=== PATIENT | male | born 1985 | race Caucasian/White ===

== ENCOUNTER → 2019-03-23 12:44 | Outpatient (CLI) | payer BC, SELFPAY | PROVIDERS: Referring Provider Ophthalmology; Visit Provider Ophthalmology | DX: H16.011 Central corneal ulcer, right eye (principal) | CPT/HCPCS: 87070; 87075; 87077; 87186; 87205 ==

== ENCOUNTER 2023-06-27 10:12 | Emergency (ER) | payer BC, SELFPAY ==
[2023-06-27 10:13] VITALS: BP 156/81; PULSE 94; RESP 16; TEMP 36.4; O2SAT 98; BMI 26.4
[2023-06-27] MEDS: Ondansetron 4 MG/2 ML Vial IV (11:02)
[2023-06-27] MEDS: Ketorolac 15 MG/ML Vial IV (11:03)
[2023-06-27] MEDS: Morphine 4 MG/ML Syringe IV (11:04)
--- NOTE | 2023-06-27 11:06 | ED.VIS.BACK ---
HPI History of Present Illness Chief Complaint: Back Detail of Chief Complaint: Central low back pain since Tuesday Informant: patient and spouse/S.O. Onset/Context/Timing Onset: Days Context: Sudden Onset Injury: lifting, twisting, bending and - (Prior to playing with son when pain started he was doing yard work.) Timing: Continuous and Waxes and wanes Quality: Aching Location: Lumbar (Central and bilateral) Current Severity: Mild Maximum Severity: Severe Worsened by: improves with Movement, Ambulation, Bending and Lifting; worse with Night time pain Relieved by: Nothing (Patient has applied ice, taken prednisone which was leftover from prior prescription.) Associated Symptoms Associated Symptoms: - (He denies foot drop. He denies saddle paresthesia or anesthesia when he wipes.); Negative for Numbness, Tingling, Radiation to Right Leg, Radiation to Left Leg, Fever, Abdominal Pain, Dysuria, Unable to Ambulate, Unable to Transfer, Urinary Retention, Urinary Incontinence, Constipation or Fecal Incontinence Narrative Narrative: Patient is a 38-year-old male with prior history of back problems. He presents with back pain that is bilateral central lower region over the lumbar area. He denies bowel bladder dysfunction. No saddle paresthesia anesthesia. Denies radicular pain. He denies foot drop. He denies numbness or tingling in his perineal region. He denies recent dental procedure or any type or's procedure. Denies fever, chills night sweats. Denies weight loss. He was taken ibuprofen without improvement. He has taken prednisone 20 mg without improvement. The prednisone was from prior prescription. Prior similar symptoms: Yes Recent Illness/Hospitalization: No [facility] Medical History Acute pharyngitis, unspecified Acute sinusitis, unspecified Contact with or exposure to other viral diseases Home Medications hydrochlorothiazide 12.5 mg tablet 12.5 mg PO DAILY 02/04/22 [History Last Taken Unknown] prednisone 5 mg tablet 5 mg PO DAILY 02/04/22 [History Last Taken Unknown] amoxicillin 875 mg-potassium clavulanate 125 mg tablet 1 tab PO BID #20 tabs 01/24/23 [Rx Last Taken Unknown] diazepam 2 mg tablet (Valium) 2 mg PO TID 4 days #10 tabs 06/27/23 [Rx Last Taken Unknown] hydrocodone-acetaminophen 5-325mg 5mg-325mg 1 tab PO Q6H PRN PRN Pain 3 days #10 TABLETS 06/27/23 [Rx Last Taken Unknown] Allergy/AdvReac Type Severity Reaction Status Date / Time No Known Allergies Allergy Verified 06/27/23 10:13 Family History Other Hypertension Social History (Updated 06/27/23 @ 11:[address] David Gtz MD) household members: spouse and children Smoking Status: Never smoker alcohol intake: current alcohol intake frequency: holidays/special occasions only substance use type: does not use ROS ROS ED Constitutional Constitutional ED: Denies chills, fever(s), subjective or sweats Eyes Eyes: Denies blurry vision, change in vision or diplopia ENT ENT ED: Denies ear pain, rhinorrhea or sore throat Cardiovascular Cardiovascular: Denies chest pain, orthopnea, palpitations or racing heartbeat Respiratory/Chest Respiratory/Chest: Denies dyspnea, dyspnea on exertion or orthopnea Gastrointestinal Gastrointestinal: Denies abdominal pain, constipation, diarrhea, nausea or vomiting Genitourinary Genitourinary ED: Denies dysuria, hematuria or urinary frequency Musculoskeletal Musculoskeletal: Reports back pain; Denies arthralgias, myalgias or neck pain Integumentary Denies rash Neurologic Neurologic: Denies paresthesias EXAM Physical Exam Const Vital Signs: 06/27/23 10:13 Temperature 97.6 F L Temperature Source Temporal Pulse Rate 94 Respiratory Rate 16 Blood Pressure 156/81 H Blood Pressure Mean 106 Pulse Ox 98 Oxygen Delivery Method Room Air Positive well nourished and well developed Constitutional Narrative: Patient appears uncomfortable when he adjusts himself and attempts to sit up. General Appearance ED: well developed; Negative for pallor HEENT Reports moist mucous membranes HEENT Narrative: Head is atraumatic and normocephalic. Ears normal. Nares patent. Eyes PERRL and EOMs intact bilaterally General Eye ED: Negative for pale conjunctiva or scleral icterus Neck no lymphadenopathy, supple and no JVD Resp normal respiratory effort and clear to auscultation bilaterally Cardio regular rate, regular rhythm, S1 normal heart sound, S2 normal heart sound and no murmurs GI normal to inspection, nondistended, normoactive bowel sounds, soft to palpation, non-tender, non-distended and no masses Palpation: Negative for hepatomegaly, splenomegaly or pulsatile mass Extremity normal to inspection and no clubbing, cyanosis or edema General Extremety ED: Negative for edema or tenderness General Extremity: Negative for edema Neuro oriented x3 and no sensory deficits noted Neuro Narrative: EHL is intact. 5 of 5 strength with plantar and dorsiflexion of the foot. Sensation L3-S1 dermatome are normal. Sensorium / Orientation: alert Deep Tendon Reflexes: Rt Patellar (L4): 3+, Lt Patellar (L4): 3+, Rt Ankle (S1): 3+ and Lt Ankle (S1): 3+ Deep Tendon Reflexes Back: Rt Patellar (L4): 3+, Lt Patellar (L4): 3+, Rt Ankle (S1): 3+ and Lt Ankle (S1): 3+ Plantar Reflex: Downgoing: bilateral (There is no clonus or noted.) Psych mental status grossly normal Skin no rashes or lesions noted and no wounds General Skin Exam: Negative for jaundice or pallor MDM MDM MDM Narrative Medical decision making narrative: History and physical is consistent with musculoskeletal low back pain. Since patient is in significant discomfort will reassess after he is medicated with regards to straight leg test, observing ambulation. Treatment and Re-Evaluation Narrative: At 1114 entered the room for reevaluation. Patient and informed that he had received his pain medicine only 5 or 10 minutes ago. Will reassess in 15 minutes. Patient was reassessed at 1135. Straight leg test is negative right and left. Able to ambulate with minimal assistance. Patient feels comfortable going home. He was discharged home with prescription for [place], Valium and told to take ibuprofen or Aleve. Discharge Plan Triage Chief Complaint: Back ED Provider: David Gtz Dx/Rx/DC Orders Clinical Impression: Difficulty in walking, Acute lumbar myofascial strain Instructions: ED Back Sprain/Strain Prescriptions: New hydrocodone-acetaminophen [hydrocodone-acetaminophen] 5-325 mg tablet 1 tab PO Q6H PRN PRN (Reason: Pain) 3 Days Qty: 10 0RF diazepam [Valium] 2 mg tablet 2 mg PO TID 4 Days Qty: 10 0RF No Action hydrochlorothiazide 12.5 mg tablet 12.5 mg PO DAILY prednisone 5 mg tablet 5 mg PO DAILY amoxicillin-pot clavulanate 875-125 mg tablet 1 tab PO BID Qty: 20 0RF Primary Care Provider: Yulissa De La Rosa Referrals: Yulissa De La Rosa MD [Primary Care Provider] - 1 Week if not improving NOT,DEFINED [Non-Staff] - Activity Restrictions/Additional Instructions: 1. Take 4 ibuprofen tablets every 8 hours or 2 Aleve tablets every 12 hours for the next 3 to 5 days 2. Apply ice 20 to 30 minutes per application 6-10 times a day 3. If there is no improvement in a week follow-up with your doctor 4. If you are unable to urinate, have loss of bowel control, dragging of foot return immediately Disposition Disposition: Home, Self Care
[2023-06-27 11:56] VITALS: BP 132/80; PULSE 74; RESP 16; TEMP 36.6; O2SAT 99
== END 2023-06-27 11:58 | disposition home or self-care (01) ==
PROVIDERS: Emergency Provider Emergency Medicine; PCP Internal Medicine; Visit Provider Emergency Medicine
DX: S39.012A Strain of muscle, fascia and tendon of lower back, initial encounter (principal); R26.2 Difficulty in walking, not elsewhere classified; X50.9XXA Other and unspecified overexertion or strenuous movements or postures, initial encounter
CPT/HCPCS: 96374; 96375; 99284; A4216; J2405

== ENCOUNTER 2023-08-29 12:30 | Outpatient (RCR) | payer BC, SELFPAY ==
--- NOTE | 2023-07-06 15:02 | HP.PTEVAL ---
Patient's Visit Information Visit Information Visit Information: PARISH CASAREZ is a 38 year old M referred to Physical Therapy by JOSEPHINE Scott with a diagnosis of ACUTE R SIDE LBP WITHOUT SCIATICA. 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 ERUM LE ROM, STRETCHING AND STRENGTHENING. HEP INSTRUCTION. 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 PATIENT DENIES ERUM NUMBNESS AND TINGLING. NO L LE SX'S. Present since: BACK PROBLEMS STARTED IN HIGH SCHOOL BUT THIS FLARE UP STARTED Tuesday06/18/23 - ABOUT 3 WKS AGO Pain Scale: WORST 8/10, LEAST 0/10 Currently: 05/14 Is it getting better, worse or staying the same: GETTING BETTER Commenced as a result of: HIT HEAD ON CAR DOOR AND BEND FORWARD REALLY QUICK - FELT BACK START TO TIGHTEN UP. ABOUT A WEEK LATER PICKING UP 11 MONTH OLD SON AND FELT SAME THING BUT MORE SEVERE. THAT DAY WENT ON IT KEPT GETTING WORSE AND BY 5 PM BACK WAS SO TIGHT COULDN'T GET OUT OF BED. TRYING TO GET OUT OF CAR LATER BACK LOCKED UP. Worse: SITTING, RISING FROM SITTING, WALKING - LIFTING R LEG, PUTTING HEAD DOWN LIKE TO GET IN CAR, MOVING IN GENERAL - SQUATTING DOWN AND STANDING UP. Better: LAYING DOWN ON BACK Disturbed sleep: YES - WHEN TRYING TO ROLL Previous history/Previous treatment: EPISODIC LBP SINCE HIGH SCHOOL - 2-3 TIMES A YEAR. CAN BE SET OFF BY SIMPLE THINGS LIKE BENDING TO PUT CONTACTS IN. USUALLY ABLE TO SELF MANAGE WITH ICE AND STRETCHING. SOMETIMES HAVE NEEDED PREDNISONE. CHIROPRACTIC IN HIGH SCHOOL. NO PT. NO BACK SURGERY OR INJECTIONS. Treatment this episode: ED - PRESCRIBED PAIN MEDICINE AND M. RELAXER AND ADVIL. INITIALLY IN BED X 2 DAYS THEN ABLE TO GET AROUND ON WALKER X ABOUT 4 DAYS. REST AND ICE 3-4 TIMES A DAY AT LEAST. OFF WORK THEN WORKED FROM HOME UNTIL BACK TO WORK LAST TUESDAY. Coughing/sneezing/straining: UNSURE Gait: NO AD'S NOW BUT STILL CAN NOT TAKE A FULL STRIDE WITH THE RIGHT LEG. WASN'T ABLE TO STAND UP STRAIGHT INITIALLY BUT CAN NOW. STEPS ARE OK IF GO SLOW NOW AND USE HR. Bowel or Bladder Dysfunction: NO Accidents: NO Unexplained weight loss: NO Imaging: NO PMH/Recent major surgery: R EYE CORNEA TRANSPLANT. HTN. Objective Objective: Sitting/Standing Posture: ANT PELVIC TILT. NO RELEVANT LATERAL SHIFT. Active Correction of posture: BETTER Other Observations: THIS PATIENT AMBULATES INDEP'LY INTO PT WITH DECREASED ERUM STRIDE LENGTH AND DECREASED CADANCE. GUARDED TRANSFERS. Sensory deficit: ERUM LE LIGHT TOUCH SENSATION GROSSLY INTACT AND SYMMETRICAL ROM deficit: ERUM HIP FLEXOR, HS AND CALF TIGHTNESS Motor deficit: ERUM LE STRENGTH GROSSLY 5/5 Reflexes: 1+ ERUM LE'S. Dural Signs: POSITIVE ERUM LE'S. Lumbar mvmt loss: flex - GARCIA - INCREASES - W ext - GARCIA - INCREASES - NW R SG - MOD - INCREASES - NW L SG - MOD - P R THIGH - W Core strength: FAIR Palpation: NO ACUTE SPINE TENDERNESS. INCREASED MUSCLE TONE ERUM PARASPINALS. Balance/Special Test Scores Oswestry Low Back Score: 14 Goals Goal 1:: DECREASE C/O BACK AND LE SX'S BY AT LEAST 80% TO ALLOW FOR RETURN TO PLOF Goal Time Frame: 4-6 Weeks Goal 2:: RESTORE TRUNK ROM AND STRENGTH TO WFL Goal Time Frame: 4-6 Weeks Goal 3:: RESTORE ERUM LE FLEXIBILITY TO WFL Goal Time Frame: 4-6 Weeks Goal 4:: RESTORE NORMAL GAIT ON LEVEL SURFACES AND UP AND DOWN STEPS. Goal Time Frame: 4-6 Weeks Goal 5:: PATIENT WILL SCORE 5 OR LESS ON BACK OSWESTRY QUESTIONNAIRE. Goal 6:: INDEP HEP Goal Time Frame: 4-6 Weeks Rehabilitation Potential Physical Therapy Diagnosis: CORE WEAKNESS AND STIFFNESS. LE STIFFNESS. IMPAIRED GAIT, TRANSFERS AND ADL'S. Rehabilitation Potential: Fair Anticipated Interventions Patient/Client Instruction: Educate patient on: Condition, Plan of Care and Risk Factors For the Purpose of:: To improve self management Therapeutic Exercise to Include: Strength training, Body mechanics, Postural training, Flexibilty training, Neuromotor development, In an aquatic setting and Dynamic Lumbar Stabilization For the Purpose of:: To decrease pain, To increase ROM, To improve muscle performance and motor function, To increase tolerance to activity/condition/position, To improve ability of physical actions for home/community/work/leisure, To improve gait and locomotor functions and To increase flexibility/ROM TENS: Yes IF ES: Yes Cryotherapy (ice pack, ice massage): Yes Thermo therapy (hot pack): Yes Ultrasound (thermal/non thermal): Yes For the Purpose of:: To decrease pain, To decrease swelling/inflammation and To improve nutrient delivery to tissue Text: Thank you for the opportunity to evaluate your patient. For Medicare and Medicare HMO plans, please review the plan of care and approve it. It will need to be FAXED BACK to us at [phone] for Medicare purposes. For Medicare only, by signing this I certify the plan of care. Please let me know if there are questions or concerns regarding this plan of care. Physician Signature: Date:
--- NOTE | 2023-08-22 18:05 | HP.PTREVAL ---
Re-Evaluation Intro: JOSEPHINE Scott, It has been my pleasure to treat PARISH CASAREZ over the last 12 visits for ACUTE R SIDE LBP WITHOUT SCIATICA. Please see the progress note below for an update on the physical therapy plan of care! Subjective Subjective: PATIENT REPORTS 90% IMPROVMENT. IT IS STILL UNCOMFORTABLE LIFTING FROM THE FLOOR. OTHER THAN THAT I FEEL GOOD. PATIENT REPORTS DR. BUTLER'S PA DID MORE X-RAYS AND EVERYTHING LOOKED GOOD. MRI NOT RECOMMENDED. ABLE TO PUSH LOWER BACK DOWN ONTO FLOOR WITH LESS DISCOMFORT NOW. PATIENT REPORTS HE HASN'T HAD PAIN THAT HE CAN RECALL FOR A WEEK OR MORE BUT HIS BACK FEELS TIGHT ALL THE TIME NOW AND IT DIDN'T BEFORE. IT STILL HURTS WHEN HE SNEEZES AND COUGHS AND IT WASN'T LIKE THAT BEFORE. FEELS TIGHT JUST TAKING CARE SEAT OUT. Objective Objective/Function: IMPROVING. GOOD CANDIDATE TO CONTINUE PT. PATIENT EXPRESSING CONCERN ABOUT HOW LONG THIS EPISODE HAS LASTED COMPARED TO EPISODES IN THE PAST AND FEAR OF SEVERE PAIN RETURNING. PATIENT HAS ACCESS TO A POOL THIS SUMMER AND IS INTERESTED IN POOL EXERCISES. AWARE OF NEED TO CORRECT POSTURE AND STRENGTHEN CORE DISCUSSED. PATIENT AGREEABLE WITH BELOW POC. Plan Plan Plan: NO LIFTS. CONTINUE PT 2X'S A WK X 5 WEEKS. ADD 4 AQUATIC SESSIONS INCLUDING DECOMPRESSION STARTING SLOW TO ASSESS RESPONSE. CONTINUE TO PROGRESS CORE STRENGTHENING WITH NEUTRAL SPINE ONLY AT THIS TIME. ERUM LE STRETCHING. Balance/Gait/Functional tests Balance/Special Test Scores Oswestry Low Back Score: 1 Goals Goals Goal 1:: DECREASE C/O BACK AND LE SX'S BY AT LEAST 80% TO ALLOW FOR RETURN TO PLOF Goal Time Frame: 4-6 Weeks Goal Progress: Progressing Goal 2:: RESTORE TRUNK ROM AND STRENGTH TO WFL Goal Time Frame: 4-6 Weeks Goal Progress: Progressing Goal 3:: RESTORE ERUM LE FLEXIBILITY TO WFL Goal Time Frame: 4-6 Weeks Goal Progress: Progressing Goal 4:: RESTORE NORMAL GAIT ON LEVEL SURFACES AND UP AND DOWN STEPS. Goal Time Frame: 4-6 Weeks Goal Progress: Progressing Goal 5:: PATIENT WILL SCORE 5 OR LESS ON BACK OSWESTRY QUESTIONNAIRE. Goal Progress: Goal Met Goal 6:: INDEP HEP Goal Time Frame: 4-6 Weeks Goal Progress: Progressing Anticipated Interventions Anticipated Interventions Patient/Client Instruction: Educate patient on: Condition, Plan of Care and Risk Factors For the Purpose of:: To improve self management Therapeutic Exercise to Include: Strength training, Body mechanics, Postural training, Flexibilty training, Neuromotor development, In an aquatic setting and Dynamic Lumbar Stabilization For the Purpose of:: To decrease pain, To increase ROM, To improve muscle performance and motor function, To increase tolerance to activity/condition/position, To improve ability of physical actions for home/community/work/leisure, To improve gait and locomotor functions and To increase flexibility/ROM TENS: Yes IF ES: Yes Cryotherapy (ice pack, ice massage): Yes Thermo therapy (hot pack): Yes Ultrasound (thermal/non thermal): Yes For the Purpose of:: To decrease pain, To decrease swelling/inflammation and To improve nutrient delivery to tissue Re-Evaluation Ending Re-evaluation ending: Please do not hesitate to contact me at [phone] by phone or if you have questions or concerns regarding this new plan of care! Sincerely, Aurea Li, PT, Cert MDT
--- NOTE | 2024-01-12 08:27 | HP.PTDCNRP_ITS ---
Patient Information Patient Information: PARISH CASAREZ was seen in my office for initial evaluation on 07/06/23. The following Plan of Care was established for this patient: POC Established Initial Frequency: 2-3x /Week Initial Duration: 4-6 Weeks Anticipated Interventions Patient/Client Instruction: Educate patient on: Condition, Plan of Care and Risk Factors For the Purpose of:: To improve self management Therapeutic Exercise to Include: Strength training, Body mechanics, Postural training, Flexibilty training, Neuromotor development, In an aquatic setting and Dynamic Lumbar Stabilization For the Purpose of:: To decrease pain, To increase ROM, To improve muscle performance and motor function, To increase tolerance to activity/condition/position, To improve ability of physical actions for home/community/work/leisure, To improve gait and locomotor functions and To increase flexibility/ROM TENS: Yes IF ES: Yes Cryotherapy (ice pack, ice massage): Yes Thermo therapy (hot pack): Yes Ultrasound (thermal/non thermal): Yes For the Purpose of:: To decrease pain, To decrease swelling/inflammation and To improve nutrient delivery to tissue Last Seen Last Seen: This patient was last seen in our office 08/29/23. Pertinent comments regarding their Physical therapy will appear below: It has been my pleasure to see this patient for a total of 13 visits. This patient has not returned to Physical Therapy for more visits and is appropriate to return to MD for further follow-up as needed. He attended one physical therapy appointment (an aquatic therapy session) after last re- assessment and subsequently cancelled visits for reason unknown. At this point I will be discontinuing this patient from physical therapy. I would be happy to see this patient again in the future if found appropriate by the physician. Thank you! Aurea Li, PT, Cert MDT Balance/Gait/Functional tests Balance/Special Test Scores Oswestry Low Back Score: 1
== END 2023-08-29 19:00 | disposition home or self-care (01) ==
LOC: PT 12:30
PROVIDERS: PCP Internal Medicine; Referring Provider Emergency Medicine; Visit Provider Emergency Medicine
DX: M54.50 Low back pain, unspecified (principal)
CPT/HCPCS: 97014; 97035; 97110; 97112; 97113; 97162; 97530; G0283